=== PATIENT | female | born 1930 | race Caucasian/White ===

== ENCOUNTER 2018-03-13 14:13 | Inpatient (IN) | payer MEDICARE, OTHER ==
[~2018-03-13 14:13] MED LIST: Magnesium Hydroxide 400 MG/5 ML Susp 30 ML Cup PO PRN; Sodium Chloride 0.9% 10 ML Syringe FLUSH PRN
--- NOTE | 2018-03-13 15:01 | CR ---
[id number] RAD/RAD Abd Flat and Upright 2V; [id number] RAD/RAD Lumbar Spine 2-3V Exam: RAD Lumbar Spine 2-3V, RAD Abd Flat and Upright 2V Indication:BACK PAIN. Comparison: No prior imaging for comparison. Discussion: Abdomen/pelvis: Moderate colonic stool burden, correlate for constipation. No no bowel obstruction or pneumoperitoneum. Lumbar spine: Thoracolumbar dextro scoliosis with multilevel spondylosis, including advanced L5-S1 degenerative disc disease. Bones are diffusely demineralized. Negative for acute fracture. Impression: Moderate colonic stool burden, correlate for constipation. Thoracolumbar dextro scoliosis with multilevel spondylosis, including advanced L5-S1 degenerative disc disease. Trevor Combs MD 03/13/18 [id number] Thank you for allowing us to participate in the care of your patient.
[2018-03-13] MEDS: Acetaminophen 325 MG Tab PO PRN (15:32)
[2018-03-13] MEDS: Nicotine 7 MG/24 Hr Patch TRDERM SCH (15:48)
[2018-03-13] MEDS ORDERED: KETOTIFEN 0.035% EYEBOTH PRN (15:51)
[2018-03-13] MEDS ORDERED: Non-Formulary Medication 1 Each (Moxifloxacin [Vigamox 0.5% Ophth Soln] 1 DROP) EYELF SCH (16:00)
[2018-03-13 16:06] LABS: ANION GAP 14.4 mmol/L (10-20)
[2018-03-13] MEDS ORDERED: NS + KCl 20mEq/L 1,000 ML IV SCH (16:30)
[2018-03-13] MEDS: diazePAM 5 MG/ML MDV IVPUSH PRN (17:29)
[2018-03-13] MEDS ORDERED: Enoxaparin 40 MG/0.4 ML Syringe SUBCUT SCH (17:30)
[2018-03-13] MEDS: Citalopram 10 MG Tab PO SCH (17:44)
[2018-03-13] MEDS ORDERED: Erythromycin Base 0.5% Ophth Oint 3.5 GM Tube EYEBOTH SCH (20:00)
--- NOTE | 2018-03-13 20:12 | HP ---
CHIEF COMPLAINT: Back pain and constipation. HISTORY OF PRESENT ILLNESS: This is an 88-year-old female who has really had back pain ever since December when we had snow and she had to try to lift a branch. She has been to PT for about 5 sessions. She was taking some Flexeril. She was actually just in last week and had the dose doubled. She was also constipated. She rates her pain level at very high. Has not had a bowel movement for 10 days. The pain goes into the right leg and hip. She has been weak, having a hard time walking, walking makes the pain worse. She had similar problems about a year ago, but they were not this bad. She is not having any cough. No trouble breathing. No abdominal pain. She has been taking Advil and Tylenol without much relief. ALLERGIES: Include tetanus, Lipitor, bee venom, paroxetine, diarrhea; Paxil, nausea, vomiting, diarrhea; simvastatin; sulfa; Zocor. MEDICATIONS: Her medication list; she used to take Lexapro, but stopped it about 6 or more months ago. Otherwise, she is on Flexeril as needed for muscle spasm, levothyroxine 100 mcg daily, skip Tuesday, doxepin 25 mg daily, Lopid 600 mg daily, Ativan 0.5 b.i.d. as needed, multiple eye drops all prescribed by her eye doctor, calcium, vitamin D, EpiPen if needed, multivitamin, and eye vitamins. PAST MEDICAL HISTORY: Does include adjustment disorder, Mina's esophagus, branch retinal vein occlusion, chronic angle closure glaucoma, corneal edema, previous corneal transplant, generalized anxiety disorder, hyperlipidemia, hypothyroidism, moderate COPD, smoking, osteoporosis, corneal transplant, previous colon polyps. FAMILY HISTORY: She did have a sister with colon cancer. Both parents are . Daughter has fibromyalgia. SOCIAL HISTORY: Socially, she is . She has 4 children. 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 PAST SURGICAL HISTORY: She has had multiple eye surgeries for glaucoma and corneal transplants, like probably about 10 eye surgeries. No other surgeries other than the eye surgeries. REVIEW OF SYSTEMS: General: She has not had any fever or chills, but has been losing weight. She has lost about 7 pounds over the last couple of months. HEENT: No sore throat. Cardiac: No chest pain. No palpitations. Respiratory: No cough. No shortness of breath. Abdomen: As stated in HPI. Musculoskeletal: She has had the back pain. Neurologic: Otherwise, she has had no numbness or tingling in her legs. No new weakness. Otherwise, all systems reviewed and found to be negative unless otherwise stated. PHYSICAL EXAMINATION: VITAL SIGNS: When seen at [facility] include weight 43.09 kg, temp 97.3, pulse 71, blood pressure 134/81, respiratory rate 16, O2 of 91% on room air. It should be noted her clinic blood pressure was 142/100. General: She is in no acute distress. Heart: Regular rate and rhythm. S1, S2 without murmur. Lungs: Sounds are clear to auscultation bilaterally without crackles or wheezes. Abdomen: Soft, but mildly distended. It has some hypoactive bowel sounds, but there is no significant tenderness. No rebound. No guarding. Back: She does have pain to palpation, especially over the right SI joint. There was no pain over the spine. No significant spasm noted. Extremities: Her legs had no swelling. Mental Status: She is mildly anxious, but otherwise she is alert and orientated x3. LABORATORY WORK: Done through the hospital and reviewed. Her white count 6.6, hemoglobin 14.5, platelets 341. Sodium 139, ESR 19, potassium 3.4, chloride 99, bicarb 29, BUN 19, creatinine 1.2, calcium 9.3. ALT, AST, bilirubin, albumin 3.5, but other liver enzymes normal. ASSESSMENT: 1. Acute back pain. We did x-rays to rule out compression fracture. At this point, those were negative. We will do pain control. We will try some IV Valium. We will try to hold off on any narcotics and NSAIDs given her renal insufficiency and constipation. 2. Constipation, presumably due to pain. We will increase her senna to 3 tablets b.i.d. We will have milk of magnesia available and we will try an enema. Her x-rays just show stool, nothing else too concerning. 3. Mild renal insufficiency. We will start her on some IV fluids. Repeat in the morning. 4. Hypothyroidism. We will continue levothyroxine. 5. Hypokalemia. We will add potassium to the fluids. Repeat tomorrow. Check a magnesium level as well. 6. Adjustment disorder with depression and anxiety. I have added back some Celexa. She took Lexapro in the past. This actually used to cause some diarrhea for her, so we will get that started in addition to her doxepin and p.r.n. Ativan. 7. Severe osteoporosis. We will need to rule out compression fracture and we did with x-rays. 8. Smoking. Nicotine patch ordered. 9. Glaucoma. She will be on her home eye drops. PLAN: At this point, the patient will be admitted for acute cares. We will start her on Lovenox for DVT prophylaxis. We will give her fluids. We will repeat lab in the morning. We will have her on IV Valium for pain control. We will get her an enema. Anticipate that she will be here 2 nights, so she is admitted under acute cares due to all the treatments that have been ordered. We will also get Physical Therapy to assess and treat her to ensure that she is safe to return home. She elects to be a code level 3. MKA: 03/13/2018 17:26:40 MODL: 03/13/2018 20:03:56 /[id number]
[2018-03-13] MEDS: LOTEMAX EYE EYELF SCH (21:24)
[2018-03-13] MEDS: ERYTHROMYCIN BASE 0.5% EYELF SCH (21:25)
[2018-03-13] MEDS: DUREZOL 0.05% EYERT SCH (21:26)
[2018-03-13] MEDS: COMBIGAN EYERT SCH (21:26)
[2018-03-13] MEDS: Enoxaparin 30 MG/0.3 ML Syringe SUBCUT SCH (21:29)
[2018-03-14] MEDS: LORazepam 0.5 MG Tab PO PRN ×2 (03:02→20:57)
[2018-03-14 07:21] LABS: ANION GAP 14.1 mmol/L (10-20)
[2018-03-14] MEDS: Levothyroxine 100 MCG Tab PO SCH (08:45)
[2018-03-14] MEDS: Doxepin 25 MG Cap PO SCH (08:46)
[2018-03-14] MEDS: valACYclovir 1,000 MG Tab PO SCH (08:46)
[2018-03-14] MEDS: Citalopram 10 MG Tab PO SCH (08:46)
[2018-03-14] MEDS: Beta-Carotene (Vitamin A) w/Vitamin C & E plus Minerals Tab PO SCH (08:47)
[2018-03-14] MEDS: COMBIGAN EYERT SCH ×2 (08:48→21:13)
[2018-03-14] MEDS: DUREZOL 0.05% EYERT SCH ×2 (08:48→21:13)
[2018-03-14] MEDS: LOTEMAX EYE EYELF SCH ×2 (08:49→21:12)
[2018-03-14] MEDS: diazePAM 5 MG/ML MDV IVPUSH PRN (09:05)
[2018-03-14] MEDS: Acetaminophen 325 MG Tab PO PRN (09:08)
[2018-03-14] MEDS: Gabapentin 100 MG Cap PO SCH ×2 (11:30→20:55)
[2018-03-14] MEDS: Nicotine 7 MG/24 Hr Patch TRDERM SCH (11:31)
--- NOTE | 2018-03-14 12:46 | PN ---
Progress Note for SHITAL WATERMAN Date: 03/14/2018 Room #: VM.219 SUBJECTIVE: This is hospital day #2 on an 88-year-old admitted yesterday with severe back pain, spasms and constipation. She did have some laxatives and an enema yesterday. She had 6 bowel movements during the night. Her abdomen is better, but still feeling a little bit full. Her back pain has been just as severe. She has had at least 2 doses of IV Valium. She has used some Tylenol when needed. She otherwise did feel like she might have a bladder infection coming on. She has not had her UA. She was incontinent of urine. She is not having any cough or shortness of breath. She did get some Celexa. She had been on Lexapro before. She had actually thought of taking that at home. She has not received any NSAIDs. She had some mild renal insufficiency on admission that improved with fluids. She has not been on narcotics. OBJECTIVE: Vital Signs: Temperature is low grade at 100.2 this a.m., pulse 67, blood pressure 143/72, respiratory rate 20, and O2 90 on room air. General: She is in no acute distress. Heart: Regular rate and rhythm. S1, S2 without murmur. Respirations: Lungs sounds are clear to auscultation bilaterally without crackles or wheezes. Abdomen: Has positive bowel sounds. It is soft. It is nondistended, just mildly tender. Extremities: Warm and dry. No edema. Mental Status: Alert and orientated x3. Musculoskeletal: Her back is palpated. There is no bony tenderness appreciated. LABORATORY DATA: Her lab work did improve. Sodium is normal at 142, potassium improved up to 4.1, chloride 104, bicarb 28, BUN 17, creatinine 0.9, glucose 80, calcium 8.8, and magnesium 2. ASSESSMENT: 1. Acute back pain with spasms. Need to rule out infections. We will be getting a UA. I am also going to start her on some Neurontin 100 b.i.d., side effects discussed. We will continue the IV Valium. I am going to restart her oral Flexeril. 2. Constipation, improving. She will continue with the senna. 3. Mild renal insufficiency, resolved. 4. Hypothyroidism, treated. 5. Hypokalemia, replaced. 6. Adjustment disorder, on Celexa. She has taken Lexapro before. 7. Severe osteoporosis. No compression fracture on x-rays. 8. Smoking. Nicotine patch is ordered. 9. Glaucoma. PLAN: At this point, the patient will continue with acute cares due to her low- grade fevers. We will check her urine. If she develops any cough, we will certainly get a chest x-ray. Otherwise, she will be using incentive spirometry. We will get her up and moving with therapies. Hopefully, if things continue to improve, she will be discharged home tomorrow. We will use ice and heat for pain control as well as the Flexeril and IV Valium. No lab work needs to be repeated unless further fevers. For DVT prophylaxis, she is on Lovenox. MKA: 03/14/2018 12:16:27 MODL: 03/14/2018 12:37:30 /[id number]
[2018-03-14] MEDS: Cyclobenzaprine 10 MG Tab PO PRN (17:27)
[2018-03-14] MEDS: Menthol/Methyl Salicylate 85 GM Tube TOP PRN (21:10)
[2018-03-14] MEDS: ERYTHROMYCIN BASE 0.5% EYELF SCH (21:12)
[2018-03-14] MEDS: Enoxaparin 30 MG/0.3 ML Syringe SUBCUT SCH (21:12)
[2018-03-15] MEDS: Levothyroxine 100 MCG Tab PO SCH (06:41)
[2018-03-15] MEDS: Gabapentin 100 MG Cap PO SCH ×2 (08:11→19:56)
[2018-03-15] MEDS: Doxepin 25 MG Cap PO SCH (08:11)
[2018-03-15] MEDS: valACYclovir 1,000 MG Tab PO SCH (08:11)
[2018-03-15] MEDS: Beta-Carotene (Vitamin A) w/Vitamin C & E plus Minerals Tab PO SCH ×2 (08:11→08:42)
[2018-03-15] MEDS: Citalopram 10 MG Tab PO SCH (08:11)
[2018-03-15] MEDS: Cyclobenzaprine 10 MG Tab PO PRN (08:12)
[2018-03-15] MEDS: DUREZOL 0.05% EYERT SCH ×2 (08:12→23:18)
[2018-03-15] MEDS: COMBIGAN EYERT SCH ×2 (08:13→19:54)
[2018-03-15] MEDS: LOTEMAX EYE EYELF SCH ×2 (08:13→19:55)
[2018-03-15] MEDS: diazePAM 5 MG/ML MDV IVPUSH PRN (08:16)
[2018-03-15] MEDS: Nicotine 7 MG/24 Hr Patch TRDERM SCH (11:43)
[2018-03-15] MEDS: predniSONE 20 MG Tab PO SCH (11:43)
--- NOTE | 2018-03-15 11:49 | CR ---
[id number] RAD/RAD Chest PA or AP 1V EXAM: RAD Chest PA or AP 1V INDICATION: HYPOXIA. COMPARISON: January 08, 2011. DISCUSSION: Cardiomediastinal silhouette is normal in size and contour. No infiltrate, effusion, pneumothorax, or edema. Pulmonary hyperinflation. Masslike perihilar fullness on the right appears more prominent when compared to the prior study from 2010. IMPRESSION: 1. Masslike perihilar fullness on the right. A CT of the chest without contrast could be considered for further evaluation. Milton Grant DO 03/15/18 1146 Thank you for allowing us to participate in the care of your patient.
[2018-03-15] MEDS: ERYTHROMYCIN BASE 0.5% EYELF SCH (19:55)
[2018-03-15] MEDS: Enoxaparin 30 MG/0.3 ML Syringe SUBCUT SCH (19:55)
--- NOTE | 2018-03-15 21:43 | PN ---
Progress Note for SHITAL WATERMAN Date: 03/15/2018 Room #: VM.219 SUBJECTIVE: Day #3 on an 88-year-old admitted with severe back pain and spasm going into the right leg and constipation. Constipation has resolved. She has had multiple bowel movements, some of them incontinent. She is not having any abdominal pain, but her back pain has been intermittent, but when it comes, it is quite sharp. We did start her on some Neurontin. She is taking some IV Valium and Flexeril. She had been taking some Motrin at home, but had some mild renal insufficiency on admission, so we have withheld that. She otherwise does have a mild cough, nonproductive. She is a smoker. She is not short of breath. She has had some incontinence of urine, but denies any burning. OBJECTIVE: Vital Signs: Her temperature this morning was 98.2, pulse 69, blood pressure 135/63, respiratory rate 18, O2 of 90% on room air. General: She is in no acute distress. Heart: Regular rate and rhythm. S1, S2 without murmur. Lungs: Sounds are decreased to air entry throughout, but without crackles or wheezes. Abdomen: Has positive bowel sounds. Soft, nontender. Extremities: Warm and dry. No edema. Left leg is examined. There is no redness, no warmth. She has normal sensation to light touch. Back: Palpated. There is no spasm noted. She had no bony tenderness, but does have some pain over the right low back lumbar musculature. Mental Status: She is alert and orientated x3. LABORATORY WORK: That was repeated today did show her potassium to have improved up to 4.1. Creatinine improved down to 0.9. ASSESSMENT: 1. Acute back pain with spasms, rule out compression fracture with some x- rays. Her UA was done and showed just mild 5-10 wbc's. We will go ahead and culture that, but I do not think that is what is causing her spasms. I think she probably had some disk pathology. Discussed starting her on prednisone 40 mg daily over the next 5 days and see how she does. We will also schedule an MRI for Tuesday. I will increase that Neurontin up to 200 twice daily. We will continue the IV Valium, but probably discontinue that soon and switch it to oral. We will continue the Flexeril. Now that her kidney function has improved, I would probably try a few more doses of IV Toradol and try to avoid narcotics due to her constipation. 2. Constipation resolved. She has senna available p.r.n. 3. Mild renal insufficiency, resolved. 4. Hypothyroidism, treated. 5. Mild hypoxia. Chest x-ray was done today. There was some question of a mass-like fullness in the right side of the chest. I was going to review this with the patient, however, she was sleeping. This can certainly be followed up outpatient. 6. Smoking. She is doing okay with avoiding that. 7. Adjustment disorder. She is currently on some Celexa. This was restarted on this admission. She has taken Lexapro before. 8. Severe osteoporosis. 9. Glaucoma. She is on her eye drops. PLAN: At this point, the patient will continue acute cares. We will start some prednisone for her back pathology. We will work on getting an MRI. She may need some epidural steroid injections. We will continue acute treatments and especially continue with therapy. Anticipate she may need to be discharged over to swing bed for further cares. For DVT prophylaxis, she is on Lovenox. I will repeat lab work tomorrow. MKA: 03/15/2018 20:31:49 MODL: 03/15/2018 21:38:05 /[id number]
[2018-03-16] MEDS: Gabapentin 100 MG Cap PO SCH ×2 (03:12→07:54)
[2018-03-16] MEDS: Menthol/Methyl Salicylate 85 GM Tube TOP PRN (04:56)
[2018-03-16] MEDS: Doxepin 25 MG Cap PO SCH (07:53)
[2018-03-16] MEDS: predniSONE 20 MG Tab PO SCH (07:53)
[2018-03-16] MEDS: Citalopram 10 MG Tab PO SCH (07:53)
[2018-03-16] MEDS: Beta-Carotene (Vitamin A) w/Vitamin C & E plus Minerals Tab PO SCH (07:54)
[2018-03-16] MEDS: DUREZOL 0.05% EYERT SCH (07:55)
[2018-03-16] MEDS: COMBIGAN EYERT SCH (07:55)
[2018-03-16] MEDS: LOTEMAX EYE EYELF SCH (07:55)
[2018-03-16] MEDS: valACYclovir 1,000 MG Tab PO SCH (07:55)
[2018-03-16] MEDS: Levothyroxine 100 MCG Tab PO SCH (07:57)
--- NOTE | 2018-03-16 09:44 | PCM.DCSUM1 ---
Discharge Summary - Hospital Course Brief History: Ms. Orellana is an 88 yo female admitted with presumed lumbar radiculopathy and constipation after presenting to the clinic with severe back pain. - Discharge Data Discharge Date: 03/16/18 Discharge Disposition: DC/Tfer W/I Hosp To Swing 61 Condition: Good - Discharge Diagnosis/Problem(s) (1) Back pain SNOMED Code(s): 651857899 ICD Code: M54.9 - DORSALGIA, UNSPECIFIED Status: Acute Current Visit: Yes Qualifiers: Back pain location: low back pain Chronicity: acute Back pain laterality : right Sciatica presence: with sciatica Sciatica laterality: sciatica of right side Qualified Code(s): M54.41 - Lumbago with sciatica, right side (2) Constipation SNOMED Code(s): 97096111 ICD Code: K59.00 - CONSTIPATION, UNSPECIFIED Status: Acute Current Visit : Yes Qualifiers: Constipation type: unspecified constipation type Qualified Code(s): K59.00 - Constipation, unspecified (3) Renal insufficiency, mild SNOMED Code(s): 419444659 ICD Code: N28.9 - DISORDER OF KIDNEY AND URETER, UNSPECIFIED Status: Chronic Current Visit: Yes (4) Adjustment disorder SNOMED Code(s): 57098573 ICD Code: F43.20 - ADJUSTMENT DISORDER, UNSPECIFIED Status: Chronic Current Visit: Yes Qualifiers: Adjustment disorder type: unspecified type Qualified Code(s): F43.20 - Adjustment disorder, unspecified (5) RAMON (generalized anxiety disorder) SNOMED Code(s): 76707788 ICD Code: F41.1 - GENERALIZED ANXIETY DISORDER Status: Chronic Current Visit: Yes (6) COPD (chronic obstructive pulmonary disease) SNOMED Code(s): 47872115 ICD Code: J44.9 - CHRONIC OBSTRUCTIVE PULMONARY DISEASE, UNSPECIFIED Status : Chronic Current Visit: Yes Qualifiers: COPD type: unspecified COPD Qualified Code(s): J44.9 - Chronic obstructive pulmonary disease, unspecified (7) Smoking SNOMED Code(s): 45621824 ICD Code: F17.200 - NICOTINE DEPENDENCE, UNSPECIFIED, UNCOMPLICATED Status : Chronic Current Visit: Yes (8) Chronic angle-closure glaucoma SNOMED Code(s): 626718784 ICD Code: H40.2290 - CHRONIC ANGLE-CLOSURE GLAUCOMA, UNSP EYE, STAGE UNSPECIFIED Status: Chronic Current Visit: Yes Qualifiers: Laterality: unspecified laterality Glaucoma stage: stage unspecified Qualified Code(s): H40.2290 - Chronic angle-closure glaucoma, unspecified eye, stage unspecified (9) Hypothyroid SNOMED Code(s): 54378549 ICD Code: E03.9 - HYPOTHYROIDISM, UNSPECIFIED Status: Chronic Current Visit: Yes Qualifiers: Hypothyroidism type: acquired Qualified Code(s): E03.9 - Hypothyroidism, unspecified (10) Osteoporosis SNOMED Code(s): 54947989 ICD Code: M81.0 - AGE-RELATED OSTEOPOROSIS W/O CURRENT PATHOLOGICAL FRACTURE Status: Chronic Current Visit: Yes Qualifiers: Osteoporosis type: age-related Presence of current pathological fracture: without current pathological fracture Qualified Code(s): M81.0 - Age-related osteoporosis without current pathological fracture - Patient Summary/Data Operative Procedure(s) Performed: none Complications: none Consults: Consultations 03/13/18 14:08 OT Evaluation and Treatment [CONS] Routine PT Evaluation and Treatment [CONS] Routine 03/13/18 17:17 Consult to Case Management/Slot Editor [CONS] Routine Labs Pending at D/C: none Recommended Follow-up Testing/Procedures: MRI on Tuesday Planned Operative Procedure(s) after DC: none Hospital Course: Patient was admitted to acute and treated with IV valium, flexeril, and tylenol. NSAID's were held due to slight increase in creatinine. She has not required any valium since yesterday morning. She has had improvement in her pain to the point that she is able to move about her room more easily with nursing. Still having spasms at times but these are controlled with PO medications. Her constipation had resolved with initial interventions but she has now gone 24 hours without a BM again. Her hospital stay was also complicated by a cough for which a chest x-ray was unremarkable for acute findings. There was a question of a mass, which her PCP will address as an outpatient. Hospitalization was otherwise uncomplicated. She had a cognitive evaluation, which she passed. PT has been working with her. As she has improved to the point of only needing oral medications, there is no indication to keep her on acute status. However, she is not prepared for dismissal home and will be transitioned instead to swing bed today. - Patient Instructions Diet: Usual Diet as Tolerated - Discharge Plan Home Medications: Home Meds Brimonidine/Timolol [Combigan 0.2%/0.5% Ophth Soln] 1 drop EYERT BID 01/19/17 [ History] Cyclobenzaprine [Flexeril] 5 mg PO BID PRN 01/19/17 [History] Doxepin [SINEquan] 25 mg PO DAILY 01/19/17 [History] Durezol 0.05% 1 drop EYERT BID 01/19/17 [History] EPINEPHrine [Epipen] 0.3 mg IM ASDIRECTED PRN 01/19/17 [History] Erythromycin Base [Erythromycin] 1 applic EYELF BEDTIME 01/19/17 [History] Gemfibrozil 600 mg PO DAILY 01/19/17 [History] Ketotifen Fumarate [Alaway] 1 drop OP Q2D PRN 01/19/17 [History] LORazepam 0.5 mg PO BID PRN 01/19/17 [History] Levothyroxine [Synthroid] 100 mcg PO ACBREAKFAST 01/19/17 [History] Loteprednol Etabonate [Lotemax] 1 drop EYELF BID 01/19/17 [History] Multivitamin Plus 1 tab PO DAILY 01/19/17 [History] Vit C/Vit E Ac/Lut/Mineral 1 [Prosight with Lutein] 1 tab PO DAILY 01/19/17 [ History] valACYclovir [Valtrex] 500 mg PO DAILY 01/19/17 [History] Moxifloxacin [Vigamox 0.5% Ophth Soln] 1 drop EYELF QID 03/13/18 [History] - Discharge Summary/Plan Comment DC Time >30 min.: No - General Info Date of Service: 03/16/18 Subjective Update: Patient feels she is doing slightly better. Still having episodes of pain but these are less often and shorter in duration than previously. Nursing staff notes she is moving much better today than she has in previous days. Chronic cough persists but is unchanged. No fever or chills. She is eating well. She does note that she now has not had a BM since yesterday morning. No abdominal pain. Voiding without issues. - Review of Systems General: Reports: No Symptoms HEENT: Reports: No Symptoms Pulmonary: Reports: No Symptoms Cardiovascular: Reports: No Symptoms Gastrointestinal: Reports: No Symptoms Genitourinary: Reports: No Symptoms Musculoskeletal: Reports: No Symptoms Skin: Reports: No Symptoms Neurological: Reports: No Symptoms - Patient Data Vitals - Most Recent: Last Vital Signs Temp 36.7 C 03/16/18 05:28 Pulse 61 03/16/18 05:28 Resp 18 03/16/18 05:28 BP 148/70 H 03/16/18 05:28 Pulse Ox 91 L 03/16/18 05:28 Weight - Most Recent: 43.091 kg I&O - Last 24 hours: Intake & Output 03/15/18 03/16/18 03/16/18 22:59 06:59 14:59 Intake Total 400 240 Output Total 375 600 Balance 25 -600 240 Lab Results - Last 24 hrs: Laboratory Results - last 24 hr 03/15/18 03/16/18 03/16/18 Range/Units 16:10 06:46 06:46 WBC 5.8 (4.0-10.0) x10^3/uL RBC 4.54 (4.00-5.50) x10^6/uL Hgb 14.1 (12.0-16.0) g/dL Hct 42.6 (33.0-47.0) % MCV 93.8 H (78.0-93.0) fL MCH 31.1 (26.0-32.0) pg MCHC 33.1 (32.0-36.0) g/dL RDW Coeff of Chris 14.4 (10.0-15.0) % Plt Count 354 (130-400) x10^3/uL Neut % (Auto) 54.7 (50.0-80.0) % Lymph % (Auto) 28.0 (25.0-50.0) % [place] % (Auto) 16.3 H (2.0-11.0) % Eos % (Auto) 0.7 (0.0-4.0) % Baso % (Auto) 0.3 (0.2-1.2) % Sodium 142 (136-145) mmol/L Potassium 4.0 (3.5-5.1) mmol/L Chloride 104 (98-107) mmol/L Carbon Dioxide 33 H (21-32) mmol/L Anion Gap 9.0 L (10-20) mmol/L BUN 15 (7-18) mg/dL Creatinine 0.9 (0.55-1.02) mg/dL Est Cr Clr Drug Dosing 30.52 mL/min Estimated GFR (MDRD) 59 Glucose 83 (74-106) mg/dL Calcium 9.1 (8.5-10.1) mg/dL Urine Color Yellow (YELLOW) Urine Appearance Clear (CLEAR) Urine pH 7.0 (5.0-8.0) Ur Specific [place] 1.015 Urine Protein Negative (NEGATIVE) mg/dL Urine Glucose (UA) Negative (NEGATIVE) mg/dL Urine Ketones Negative (NEGATIVE) mg/dL Urine Occult Blood Trace-intact H (NEGATIVE) Urine Nitrite Negative (NEGATIVE) Urine Bilirubin Negative (NEGATIVE) Urine Urobilinogen 1.0 (0.2) EU/dL Ur Leukocyte Esterase Small H (NEGATIVE) Urine RBC 0-5 (NOT SEEN) /HPF Urine WBC 5-10 H (NOT SEEN) /HPF Ur Squamous Epith Cells Rare (NEGATIVE) /HPF Urine Bacteria Few H (NEGATIVE) /HPF Urine Mucus Rare H (NEGATIVE) /LPF Med Orders - Current: Current Medications Acetaminophen (Tylenol) 650 mg PO Q4H PRN PRN Reason: Pain (Mild 1-3)/fever Last Admin: 03/14/18 09:08 Dose: 650 mg Citalopram Hydrobromide (Celexa) 5 mg PO DAILY [facility] Last Admin: 03/16/18 07:53 Dose: 5 mg Cyclobenzaprine HCl (Flexeril) 5 mg PO TID PRN PRN Reason: Spasms Last Admin: 03/15/18 08:12 Dose: 5 mg Doxepin HCl (Sinequan) 25 mg PO DAILY [facility] Last Admin: 03/16/18 07:53 Dose: 25 mg Enoxaparin Sodium (Lovenox) 30 mg SUBCUT Q24H [facility] Last Admin: 03/15/18 19:55 Dose: 30 mg Erythromycin (Erythromycin 0.5% Ophth Oint) 0 gm EYELF BEDTIME [facility] Last Admin: 03/15/18 19:55 Dose: 1 drop Gabapentin (Neurontin) 200 mg PO BID [facility] Last Admin: 03/16/18 07:54 Dose: 200 mg Levothyroxine Sodium (Synthroid) 100 mcg PO ACBREAKFAST [facility] Last Admin: 03/16/18 07:57 Dose: Not Given Lorazepam (Ativan) 0.5 mg PO BID PRN PRN Reason: Anxiety Last Admin: 03/14/18 20:57 Dose: 0.5 mg Magnesium Hydroxide (Milk Of Magnesia) 30 ml PO Q12H PRN PRN Reason: Constipation Methyl Salicylate (Icy Hot Cream) 1 gm TOP BID PRN PRN Reason: Pain (mild 1-3) Last Admin: 03/16/18 04:56 Dose: 1 gram Multivitamins/Minerals (Prosight) 1 tab PO DAILY [facility] Last Admin: 03/16/18 07:54 Dose: 1 tab Nicotine (Habitrol) 7 mg TRDERM Q24H [facility] Last Admin: 03/15/18 11:43 Dose: 7 mg Combigan 0.2%/0.5% (Ophth Soln) 1 drop EYERT BID [facility] Last Admin: 03/16/18 07:55 Dose: 1 drop Durezol 0.05% * (Patient Own*) 1 drop EYERT BID [facility] Last Admin: 03/16/18 07:55 Dose: 1 drop Ketotifen 0.035 % Eye Drops *Patient Own* 0 each EYEBOTH DAILY PRN PRN Reason: Dry Eyes Lotemax Eye Drops * (Patient Own*) 1 drop EYELF BID [facility] Last Admin: 03/16/18 07:55 Dose: 1 drop Prednisone (Prednisone) 40 mg PO WITHBREAKFAST [facility] Last Admin: 03/16/18 07:53 Dose: 40 mg Sodium Chloride (Saline Flush) 10 ml FLUSH ASDIRECTED PRN PRN Reason: Keep Vein Open Valacyclovir HCl (Valtrex) 500 mg PO DAILY [facility] Last Admin: 03/16/18 07:55 Dose: 500 mg Discontinued Medications Diazepam (Valium) 2.5 mg IVPUSH Q4H PRN PRN Reason: Pain Last Admin: 03/15/18 08:16 Dose: 2.5 mg Enoxaparin Sodium (Lovenox) 40 mg SUBCUT Q24H [facility] Last Admin: 03/13/18 18:21 Dose: Not Given Erythromycin (Erythromycin 0.5% Ophth Oint) gm EYEBOTH BEDTIME [facility] Gabapentin (Neurontin) 100 mg PO BID [facility] Last Admin: 03/15/18 19:56 Dose: 100 mg Potassium Chloride/Sodium Chloride (Normal Saline With 20 Meq Kcl) 1,000 mls @ 75 mls/hr IV ASDIRECTED [facility] Last Admin: 03/13/18 17:30 Dose: 75 mls/hr Non-Formulary Medication (Moxifloxacin [Vigamox 0.5% Ophth Soln]) 1 drop EYELF QID [facility] Last Admin: 03/13/18 17:28 Dose: Not Given Senna/Docusate Sodium (Senna Plus) 3 tab PO BID [facility] Last Admin: 03/14/18 08:46 Dose: 3 tab Senna/Docusate Sodium (Senna Plus) 1 tab PO BID [facility] - Exam General: Reports: Alert, Cooperative, No Acute Distress HEENT: Reports: Mucous Membr. Moist/[place] Neck: Reports: Supple, Trachea Midline, No Thyromegaly. Denies: Lymphadenopathy Lungs: Reports: Clear to Auscultation, Normal Respiratory Effort Cardiovascular: Reports: Regular Rate, Regular Rhythm, No Murmurs GI/Abdominal Exam: Normal Bowel Sounds, Soft, Non-Tender, No Organomegaly, No Distention, No Mass Extremities: Non-Tender, No Pedal Edema, Normal Capillary Refill Skin: Reports: Warm, Dry, Intact Neurological: Reports: No New Focal Deficit
== END 2018-03-16 10:56 | disposition swing bed (61) | DRG 552 ==
LOC: VM.DI 14:13 → VM.MS 14:22
PROVIDERS: ADMIT Internal Medicine; ATTEND Internal Medicine
DX: M54.16 Radiculopathy, lumbar region (principal); K59.00 Constipation, unspecified; E78.5 Hyperlipidemia, unspecified; E03.9 Hypothyroidism, unspecified; J44.9 Chronic obstructive pulmonary disease, unspecified; F17.210 Nicotine dependence, cigarettes, uncomplicated; R09.02 Hypoxemia; R05 Cough; K22.70 Barrett's esophagus without dysplasia; M54.41 Lumbago with sciatica, right side; H40.2290 Chronic angle-closure glaucoma, unspecified eye, stage unspecified; M81.0 Age-related osteoporosis without current pathological fracture; N28.9 Disorder of kidney and ureter, unspecified; F43.20 Adjustment disorder, unspecified; F41.1 Generalized anxiety disorder; E87.6 Hypokalemia; R22.2 Localized swelling, mass and lump, trunk; Z94.7 Corneal transplant status; Z79.899 Other long term (current) drug therapy; Z88.2 Allergy status to sulfonamides; Z88.8 Allergy status to other drugs, medicaments and biological substances
CPT/HCPCS: 36415; 71045; 72100; 74019; 80048; 80053; 81001; 83735; 85025; 85652; 87086; 97110-GO; 97110-GP; 97161-GP; 97165-GO; 97530-GP; A9270-GY; J1650; J3360; J3480

== ENCOUNTER 2018-03-16 09:52 | Inpatient (IN) | payer MEDICARE, OTHER ==
--- NOTE | 2018-03-16 11:04 | PCM.HP ---
H&P History of Present Illness - General Date of Service: 03/16/18 Admit Problem/Dx: Admission Diagnosis/Problem Admission Diagnosis/Problem Lumbar radiculopathy Source of Information: Patient History Limitations: Reports: No Limitations - History of Present Illness Initial Comments - Free Text/Narative: Ms. Orellana is an 88 yo female who is admitted to swing bed for further management of acute lumbar radiculopathy. She was initially admitted to acute as she was requiring IV medications for pain control. Her last dose of any IV medication was yesterday morning so she was no longer meeting acute criteria. Neither the patient nor staff feel she is prepared to return home; therefore, she is transitioned to swing bed for ongoing cares. She states she is still having episodes of spasms but these are less often, shorter in duration, and less severe than they were on admission. She also had constipation on admission and this did improve; she now states, however, that she has again not had a bowel movement for 24 hours. No abdominal pain. She is voiding without any issues. She has had a cough but this is chronic for her and without changes. No fever or shortness of breath. Acute hospitalization was otherwise uncomplicated and she denies any other concerns today. - Related Data Allergies/Adverse Reactions: Allergies Allergy/AdvReac Type Severity Reaction Status Date / Time Sulfa (Sulfonamide Allergy Rash Verified 01/19/17 12:58 Antibiotics) tetanus and diphtheria Allergy Rash Verified 01/19/17 12:58 toxoids atorvastatin [From Lipitor] AdvReac Muscle Verified 03/13/18 14:12 Weakness paroxetine [From Paxil] AdvReac Diarrhea Verified 03/13/18 14:12 simvastatin [From Zocor] AdvReac Muscle Verified 03/13/18 14:12 Weakness wasp Allergy Difficulty Uncoded 01/19/17 12:58 Swallowing Home Medications: Home Meds Brimonidine/Timolol [Combigan 0.2%/0.5% Ophth Soln] 1 drop EYERT BID 01/19/17 [ History] Cyclobenzaprine [Flexeril] 5 mg PO BID PRN 01/19/17 [History] Doxepin [SINEquan] 25 mg PO DAILY 01/19/17 [History] Durezol 0.05% 1 drop EYERT BID 01/19/17 [History] EPINEPHrine [Epipen] 0.3 mg IM ASDIRECTED PRN 01/19/17 [History] Erythromycin Base [Erythromycin] 1 applic EYELF BEDTIME 01/19/17 [History] Gemfibrozil 600 mg PO DAILY 01/19/17 [History] Ketotifen Fumarate [Alaway] 1 drop OP Q2D PRN 01/19/17 [History] LORazepam 0.5 mg PO BID PRN 01/19/17 [History] Levothyroxine [Synthroid] 100 mcg PO ACBREAKFAST 01/19/17 [History] Loteprednol Etabonate [Lotemax] 1 drop EYELF BID 01/19/17 [History] Multivitamin Plus 1 tab PO DAILY 01/19/17 [History] Vit C/Vit E Ac/Lut/Mineral 1 [Prosight with Lutein] 1 tab PO DAILY 01/19/17 [ History] valACYclovir [Valtrex] 500 mg PO DAILY 01/19/17 [History] Moxifloxacin [Vigamox 0.5% Ophth Soln] 1 drop EYELF QID 03/13/18 [History] Acetaminophen [Tylenol] 650 mg PO Q4H PRN 03/16/18 [History] Citalopram Hydrobromide [Celexa] 5 mg PO DAILY 03/16/18 [History] Gabapentin [Neurontin] 200 mg PO BID 03/16/18 [History] Menthol/Methyl Salicylate [Icy Hot Cream] 1 applicful TP BID PRN 03/16/18 [ History] Nicotine [Nicotine Patch] 7 mg TD DAILY 03/16/18 [History] predniSONE [Prednisone] 40 mg PO DAILY 03/16/18 [History] Past Medical History HEENT History: Reports: Glaucoma Other HEENT History: bilateral dry eye, interocular lens replacement, 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, left glaucoma shunt device, dermatochalasis, corneal edemaright,branch retinal vein occlusion, pseudophakia Cardiovascular History: Reports: High Cholesterol Other Cardiovascular History: hyperlipidemia, elevated blood pressure Respiratory History: Reports: COPD Gastrointestinal History: Reports: GERD Other Gastrointestinal History: Mina's Genitourinary History: Reports: Chronic Renal Insuffiency Musculoskeletal History: Reports: Osteoporosis Neurological History: Reports: None Psychiatric History: Reports: Anxiety Other Psychiatric History: adjustment disorder Endocrine/Metabolic History: Reports: Hypoparathyroidism Other Endocrine/Metabolic History: impaired fasting glucose, Hematologic History: Reports: None Oncologic (Cancer) History: Reports: Colon, Other (See Below) Other Oncologic History: tubular adenoma Dermatologic History: Reports: Other (See Below) Other Dermatologic History: rash - Past Surgical History HEENT Surgical History: Reports: Other (See Below) Other HEENT Surgeries/Procedures: post corneal transplant Social & Family History - Family History Cardiac: Reports: CAD Neurological: Reports: CVA, Seizure Oncologic: Reports: Breast, Colon - Tobacco Use Smoking Status *Q: Current Every Day Smoker - Caffeine Use Caffeine Use: Reports: Coffee Caffeine Use Comment: 3/day - Alcohol Use Alcohol Use History: No Alcohol Use in Last Twelve Months: No - Recreational Drug Use Recreational Drug Use: No - Living Situation & Occupation Living situation: Reports: , Alone 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 No: Lymphadenopathy, Thyromegaly Lungs: Clear to Auscultation, Normal Respiratory Effort Cardiovascular: Regular Rate, Regular Rhythm, Normal S1, Normal S2 GI/Abdominal Exam: Normal Bowel Sounds, Soft, Non-Tender, No Organomegaly, No Distention, No Mass Extremities: Non-Tender, No Pedal Edema, Normal Capillary Refill Peripheral Pulses: 2+: Radial (L), Radial (R) Skin: Warm, Dry, Intact Neurological: Reflexes Equal Bilateral, Strength Equal Bilateral, Sensation Intact - Problem List (1) Back pain SNOMED Code(s): 038295260 ICD Code: M54.9 - DORSALGIA, UNSPECIFIED Status: Acute Qualifiers: Back pain location: low back pain Chronicity: acute Back pain laterality : right Sciatica presence: with sciatica Sciatica laterality: sciatica of right side Qualified Code(s): M54.41 - Lumbago with sciatica, right side (2) Constipation SNOMED Code(s): 55409634 ICD Code: K59.00 - CONSTIPATION, UNSPECIFIED Status: Acute Qualifiers: Constipation type: unspecified constipation type Qualified Code(s): K59.00 - Constipation, unspecified (3) Adjustment disorder SNOMED Code(s): 07118356 ICD Code: F43.20 - ADJUSTMENT DISORDER, UNSPECIFIED Status: Chronic Qualifiers: Adjustment disorder type: with anxious mood Qualified Code(s): F43.22 - Adjustment disorder with anxiety (4) COPD (chronic obstructive pulmonary disease) SNOMED Code(s): 77351142 ICD Code: J44.9 - CHRONIC OBSTRUCTIVE PULMONARY DISEASE, UNSPECIFIED Status : Chronic Qualifiers: COPD type: unspecified COPD Qualified Code(s): J44.9 - Chronic obstructive pulmonary disease, unspecified (5) Smoking SNOMED Code(s): 20252940 ICD Code: F17.200 - NICOTINE DEPENDENCE, UNSPECIFIED, UNCOMPLICATED Status : Chronic (6) Chronic angle-closure glaucoma SNOMED Code(s): 962258235 ICD Code: H40.2290 - CHRONIC ANGLE-CLOSURE GLAUCOMA, UNSP EYE, STAGE UNSPECIFIED Status: Chronic Qualifiers: Laterality: unspecified laterality Glaucoma stage: stage unspecified Qualified Code(s): H40.2290 - Chronic angle-closure glaucoma, unspecified eye, stage unspecified (7) Hypothyroid SNOMED Code(s): 27609333 ICD Code: E03.9 - HYPOTHYROIDISM, UNSPECIFIED Status: Chronic Qualifiers: Hypothyroidism type: acquired Qualified Code(s): E03.9 - Hypothyroidism, unspecified (8) Osteoporosis SNOMED Code(s): 79648968 ICD Code: M81.0 - AGE-RELATED OSTEOPOROSIS W/O CURRENT PATHOLOGICAL FRACTURE Status: Chronic Qualifiers: Osteoporosis type: age-related Presence of current pathological fracture: without current pathological fracture Qualified Code(s): M81.0 - Age-related osteoporosis without current pathological fracture (9) Renal insufficiency, mild SNOMED Code(s): 326987468 ICD Code: N28.9 - DISORDER OF KIDNEY AND URETER, UNSPECIFIED Status: Chronic Problem List Initiated/Reviewed/Updated: Yes Orders Last 24hrs: Active Orders 24 hr Category Date Time Status Patient Status [ADT] Routine ADT 03/16/18 10:56 Active Notify Provider Vital Signs [RC] ASDIRECTED Care 03/16/18 10:56 Active Oxygen Therapy [RC] PRN Care 03/16/18 10:54 Active Up With Assistance [RC] ASDIRECTED Care 03/16/18 10:54 Active VTE/DVT Education [RC] PER UNIT ROUTINE Care 03/16/18 10:54 Active Vital Signs [RC] PER UNIT ROUTINE Care 03/16/18 10:54 Active PT Evaluation and Treatment [CONS] Routine Cons 03/16/18 10:54 Active Regular Diet [DIET] Diet 03/16/18 Lunch Active Enoxaparin [Lovenox] Med 03/17/18 08:00 Ordered 30 mg SUBCUT DAILY Resuscitation Status Routine Resus Stat 03/16/18 10:54 Ordered Medication Orders Enoxaparin Sodium (Lovenox) 30 mg SUBCUT DAILY [facility] Assessment/Plan Comment:: 88 yo female admitted to swing bed for further pain management and therapy related to low back pain after acute admission for the same. #1 Acute on chronic low back pain - Continue tylenol, flexeril, and gabapentin. - PT to continue working with her. - Plan is for her to have an MRI on Tuesday so injections can be considered. #2 Constipation - Will schedule her stool softeners since she is having recurrent symptoms now. - Will add miralax daily PRN. #3 Adjustment disorder #4 COPD #5 Smoking #6 Glaucoma #7 Hypothyroidism #8 Osteoporosis #9 Mild renal insufficiency - Chronic conditions are stable. - Continue home medications. Patient will remain on swing bed until it is determined she is safe to return to her own home. See details under problems above. Lovenox for VTE prophylaxis until she is moving more consistently. Code status is DNR/DNI.
[2018-03-16] MEDS ORDERED: KETOTIFEN FUMARATE OP PRN (11:23)
[2018-03-16] MEDS ORDERED: Acetaminophen 325 MG Tab PO SCH (11:30)
[2018-03-16] MEDS ORDERED: MOXIFLOXACIN EYELF SCH (12:00)
[2018-03-16] MEDS: Acetaminophen 325 MG Tab PO SCH ×2 (14:17→19:44)
[2018-03-16] MEDS: Cyclobenzaprine 10 MG Tab PO PRN ×2 (18:01→21:01)
[2018-03-16] MEDS: Gabapentin 100 MG Cap PO SCH (19:44)
[2018-03-16] MEDS: Enoxaparin 30 MG/0.3 ML Syringe SUBCUT SCH (19:45)
[2018-03-16] MEDS: LOTEPREDNOL ETABONATE EYELF SCH (19:46)
[2018-03-16] MEDS: BRIMONIDINE EYERT SCH (19:47)
[2018-03-16] MEDS: Erythromycin Base 0.5% Ophth Oint 3.5 GM Tube EYEBOTH SCH (19:47)
[2018-03-16] MEDS: DUREZOL 0.05% EYERT SCH (19:47)
[2018-03-16] MEDS: TIMOLOL EYERT SCH (19:47)
[2018-03-16] MEDS ORDERED: Erythromycin Base 0.5% Ophth Oint 3.5 GM Tube EYELF SCH (20:00)
[2018-03-16] MEDS: LORazepam 0.5 MG Tab PO PRN (21:00)
[2018-03-17] MEDS: Acetaminophen 325 MG Tab PO SCH ×4 (04:40→20:46)
[2018-03-17] MEDS: Levothyroxine 100 MCG Tab PO SCH (06:02)
[2018-03-17] MEDS: Gabapentin 100 MG Cap PO SCH ×2 (07:50→20:45)
[2018-03-17] MEDS: Nicotine 7 MG/24 Hr Patch TRDERM SCH (07:53)
[2018-03-17] MEDS: Gemfibrozil 600 MG Tab PO SCH (07:54)
[2018-03-17] MEDS: valACYclovir 1,000 MG Tab PO SCH (07:54)
[2018-03-17] MEDS: Beta-Carotene (Vitamin A) w/Vitamin C & E plus Minerals Tab PO SCH (07:54)
[2018-03-17] MEDS: Doxepin 25 MG Cap PO SCH (07:54)
[2018-03-17] MEDS: Cyclobenzaprine 10 MG Tab PO PRN ×2 (07:54→20:46)
[2018-03-17] MEDS: Citalopram 10 MG Tab PO SCH (07:55)
[2018-03-17] MEDS: LOTEPREDNOL ETABONATE EYELF SCH ×2 (07:56→20:50)
[2018-03-17] MEDS: BRIMONIDINE EYERT SCH ×2 (07:56→20:50)
[2018-03-17] MEDS: TIMOLOL EYERT SCH ×2 (07:56→20:50)
[2018-03-17] MEDS: DUREZOL 0.05% EYERT SCH ×2 (07:56→20:48)
[2018-03-17] MEDS: Menthol/Methyl Salicylate 85 GM Tube TOP PRN ×2 (07:57→20:56)
[2018-03-17] MEDS: LORazepam 0.5 MG Tab PO PRN (20:46)
[2018-03-17] MEDS: Enoxaparin 30 MG/0.3 ML Syringe SUBCUT SCH (20:47)
[2018-03-17] MEDS: Erythromycin Base 0.5% Ophth Oint 3.5 GM Tube EYEBOTH SCH (20:48)
[2018-03-18] MEDS: Acetaminophen 325 MG Tab PO SCH ×4 (02:52→19:00)
[2018-03-18] MEDS: Levothyroxine 100 MCG Tab PO SCH (07:52)
[2018-03-18] MEDS: Gabapentin 100 MG Cap PO SCH ×2 (08:17→19:01)
[2018-03-18] MEDS: Citalopram 10 MG Tab PO SCH (08:20)
[2018-03-18] MEDS: Doxepin 25 MG Cap PO SCH (08:21)
[2018-03-18] MEDS: Beta-Carotene (Vitamin A) w/Vitamin C & E plus Minerals Tab PO SCH (08:21)
[2018-03-18] MEDS: Nicotine 7 MG/24 Hr Patch TRDERM SCH (08:21)
[2018-03-18] MEDS: Gemfibrozil 600 MG Tab PO SCH (08:21)
[2018-03-18] MEDS: valACYclovir 1,000 MG Tab PO SCH (08:23)
[2018-03-18] MEDS: DUREZOL 0.05% EYERT SCH ×2 (08:40→19:02)
[2018-03-18] MEDS: BRIMONIDINE EYERT SCH ×2 (08:40→18:59)
[2018-03-18] MEDS: TIMOLOL EYERT SCH ×2 (08:40→18:59)
[2018-03-18] MEDS: LOTEPREDNOL ETABONATE EYELF SCH ×2 (08:41→18:59)
[2018-03-18] MEDS: Sennosides 8.6 MG Tab PO SCH (11:40)
[2018-03-18] MEDS: Polyethylene Glycol 3350 Powder 17 GM Packet PO PRN (11:40)
[2018-03-18] MEDS: Cyclobenzaprine 10 MG Tab PO PRN ×2 (11:43→17:16)
[2018-03-18] MEDS: Menthol/Methyl Salicylate 85 GM Tube TOP PRN (11:43)
[2018-03-18] MEDS: Enoxaparin 30 MG/0.3 ML Syringe SUBCUT SCH (18:59)
[2018-03-18] MEDS: Erythromycin Base 0.5% Ophth Oint 3.5 GM Tube EYEBOTH SCH (19:06)
[2018-03-19] MEDS: Acetaminophen 325 MG Tab PO SCH ×4 (01:28→20:43)
[2018-03-19] MEDS: Levothyroxine 100 MCG Tab PO SCH ×2 (05:48→06:57)
[2018-03-19] MEDS: Gabapentin 100 MG Cap PO SCH ×2 (07:59→20:43)
[2018-03-19] MEDS: predniSONE 20 MG Tab PO SCH (08:01)
[2018-03-19] MEDS: Sennosides 8.6 MG Tab PO SCH (08:01)
[2018-03-19] MEDS: Citalopram 10 MG Tab PO SCH (08:01)
[2018-03-19] MEDS: Beta-Carotene (Vitamin A) w/Vitamin C & E plus Minerals Tab PO SCH (08:02)
[2018-03-19] MEDS: Gemfibrozil 600 MG Tab PO SCH (08:02)
[2018-03-19] MEDS: valACYclovir 1,000 MG Tab PO SCH (08:02)
[2018-03-19] MEDS: Menthol/Methyl Salicylate 85 GM Tube TOP PRN ×2 (08:03→21:16)
[2018-03-19] MEDS: Nicotine 7 MG/24 Hr Patch TRDERM SCH (08:04)
[2018-03-19] MEDS: Polyethylene Glycol 3350 Powder 17 GM Packet PO PRN (08:04)
[2018-03-19] MEDS: LOTEPREDNOL ETABONATE EYELF SCH ×2 (08:05→20:47)
[2018-03-19] MEDS: BRIMONIDINE EYERT SCH ×2 (08:05→20:47)
[2018-03-19] MEDS: TIMOLOL EYERT SCH ×2 (08:05→20:47)
[2018-03-19] MEDS: Doxepin 25 MG Cap PO SCH (08:08)
[2018-03-19] MEDS: DUREZOL 0.05% EYERT SCH ×3 (08:11→21:07)
[2018-03-19] MEDS: Cyclobenzaprine 10 MG Tab PO PRN ×2 (13:55→20:45)
[2018-03-19] MEDS: LORazepam 0.5 MG Tab PO PRN (20:45)
[2018-03-19] MEDS: Enoxaparin 30 MG/0.3 ML Syringe SUBCUT SCH (20:46)
[2018-03-19] MEDS: Erythromycin Base 0.5% Ophth Oint 3.5 GM Tube EYEBOTH SCH (20:46)
[2018-03-20] MEDS: Acetaminophen 325 MG Tab PO SCH ×4 (05:04→19:44)
[2018-03-20] MEDS: Levothyroxine 100 MCG Tab PO SCH (06:43)
[2018-03-20] MEDS: Cyclobenzaprine 10 MG Tab PO PRN (06:43)
[2018-03-20] MEDS: Nicotine 7 MG/24 Hr Patch TRDERM SCH (09:03)
[2018-03-20] MEDS: valACYclovir 1,000 MG Tab PO SCH (09:03)
[2018-03-20] MEDS: Citalopram 10 MG Tab PO SCH (09:04)
[2018-03-20] MEDS: Sennosides 8.6 MG Tab PO SCH (09:04)
[2018-03-20] MEDS: Doxepin 25 MG Cap PO SCH ×2 (09:04→09:19)
[2018-03-20] MEDS: Beta-Carotene (Vitamin A) w/Vitamin C & E plus Minerals Tab PO SCH (09:05)
[2018-03-20] MEDS: predniSONE 20 MG Tab PO SCH (09:05)
[2018-03-20] MEDS: Gemfibrozil 600 MG Tab PO SCH (09:05)
[2018-03-20] MEDS: Gabapentin 100 MG Cap PO SCH ×2 (09:05→19:44)
[2018-03-20] MEDS: TIMOLOL EYERT SCH ×2 (09:06→19:43)
[2018-03-20] MEDS: BRIMONIDINE EYERT SCH ×2 (09:06→19:43)
[2018-03-20] MEDS: DUREZOL 0.05% EYERT SCH ×2 (09:06→19:44)
[2018-03-20] MEDS: LOTEPREDNOL ETABONATE EYELF SCH ×2 (09:06→19:42)
[2018-03-20] MEDS: Erythromycin Base 0.5% Ophth Oint 3.5 GM Tube EYEBOTH SCH (19:45)
[2018-03-20] MEDS ORDERED: Doxepin 25 MG Cap PO SCH (20:00)
[2018-03-21] MEDS: Acetaminophen 325 MG Tab PO SCH ×2 (03:12→08:47)
[2018-03-21] MEDS: Levothyroxine 100 MCG Tab PO SCH (06:22)
[2018-03-21] MEDS ORDERED: predniSONE 20 MG Tab PO SCH (08:00)
[2018-03-21] MEDS: valACYclovir 1,000 MG Tab PO SCH (08:41)
[2018-03-21] MEDS: Cyclobenzaprine 10 MG Tab PO PRN (08:41)
[2018-03-21] MEDS: Sennosides 8.6 MG Tab PO SCH (08:43)
[2018-03-21] MEDS: Gemfibrozil 600 MG Tab PO SCH (08:43)
[2018-03-21] MEDS: Citalopram 10 MG Tab PO SCH (08:44)
[2018-03-21] MEDS: Gabapentin 100 MG Cap PO SCH (08:45)
[2018-03-21] MEDS: Nicotine 7 MG/24 Hr Patch TRDERM SCH (08:45)
[2018-03-21] MEDS: DUREZOL 0.05% EYERT SCH (08:46)
[2018-03-21] MEDS: LOTEPREDNOL ETABONATE EYELF SCH (08:46)
[2018-03-21] MEDS: BRIMONIDINE EYERT SCH (08:46)
[2018-03-21] MEDS: TIMOLOL EYERT SCH (08:46)
[2018-03-21] MEDS: Beta-Carotene (Vitamin A) w/Vitamin C & E plus Minerals Tab PO SCH (08:47)
--- NOTE | 2018-03-22 03:41 | DISCH ---
PRIMARY DISCHARGE DIAGNOSES: 1. Back pain secondary to an acute T12 compression fracture. 2. Constipation, resolved. 3. Mild renal insufficiency, resolved. 4. Adjustment disorder with anxiety, started on Celexa, doing well. 5. Chronic obstructive pulmonary disease, chronic, without exacerbation. 6. Chronic smoking, not desiring to quit. 7. Chronic glaucoma and legal blindness. 8. Hypothyroidism. 9. Osteoporosis. 10. Smoking HISTORY OF PRESENT ILLNESS: This is an 88-year-old female who had an injury back in December. She had worked with PT, but had ongoing back pain, had not had a bowel movement for over a week, came into the clinic, was in so much pain she could hardly move. She was found to have a creatinine elevated up to 1.2, and she had low potassium as well. She had some x-rays, which did not reveal a compression fracture. The pain was over the right side, sort of down into the right buttock. She felt like it was like sciatica. She was working with PT. She was getting some the E-stim. Her pain was improving. She also got an enema and started having multiple bowel movements and her bowels were moving good by the time of discharge. She did not at any point require any narcotic pain medications, but did respond well to some Neurontin, muscle relaxants like Flexeril, and even some IV Valium initially, but was able to be weaned off that. She did get initiated on some prednisone due to the concern for disk disease in her back. However, MRI was done on the , which revealed an acute T12 compression fracture. The patient had no pain specifically over the T12 area. We discussed the nature of compression fractures and the fact that it would likely improve and continue to heal on its own. Therefore, we will mainly focus on pain control, and the patient and family were agreeable to this. Her lab work improved to the point her creatinine was down to 0.9. Her potassium was normal at 4. She did have a chest x-ray due to some mild cough, which did show a question of some fullness in the right perihilar area. She had not had a white count or fever or chills. Did discuss with the patient that this will require further workup outpatient, especially given that she is a smoker. DISCHARGE PLANS AND INSTRUCTIONS: The patient will follow up in the clinic with Dr. Grace on 04/06/2018. She will have no lab work due at that time. There were medication changes, which did include Neurontin 200 b.i.d., new medication, and Celexa 5 mg daily. She may continue to alternate Tylenol and Motrin. She otherwise will be under Home Health and have home PT. She will look into assisted living options. PHYSICAL EXAMINATION: Vital Signs: Discharging vitals include a temperature 97.6, pulse 67, blood pressure 135/75, respiratory rate 18, O2 of 98% on room air. Weight is 44.3 kg. General: She is in no acute distress. Heart: Regular rate and rhythm. S1, S2 without murmur. Lungs: Sounds are clear to auscultation bilaterally without crackles or wheezes. Abdomen: Has positive bowel sounds. Soft, nontender. Extremities: Warm and dry. No edema. Mental Status: Alert and orientated x3. Spine: Palpated. There is no pain over the spine. The pain is over the right lumbar musculature. ADDENDUM: To Home Health, which occurred with myself on 03/21/2018. Primary reason for home health is for nursing to do teachings and assessments to help with new medication changes, particularly medications that were changed due to pain and need for ongoing monitoring of that and also with her impaired vision to provide some help with getting things set up in the home as well as physical therapy to help her improve her mobility in the setting of an acute T12 compression fracture. Otherwise, due to the T12 compression fracture, her gait is limited. She can do distances with a walker, but does require the assistance of another individual to leave her home, particularly needing help getting in and out of a vehicle. Therefore, absences from home are infrequent and require taxing effort. I will periodically review this plan of care. MKA: 03/21/2018 11:01:29 MODL: 03/22/2018 03:34:41 /[id number] ALEXANDRA
== END 2018-03-21 14:15 | disposition home health service (06) | DRG 552 ==
LOC: VM.MS 10:56
PROVIDERS: ADMIT Family Medicine; ATTEND Internal Medicine
DX: S22.081A Stable burst fracture of T11-T12 vertebra, initial encounter for closed fracture (principal); M54.16 Radiculopathy, lumbar region; M54.41 Lumbago with sciatica, right side; K59.00 Constipation, unspecified; R05 Cough; E78.5 Hyperlipidemia, unspecified; J44.9 Chronic obstructive pulmonary disease, unspecified; K21.9 Gastro-esophageal reflux disease without esophagitis; Z66 Do not resuscitate; M81.0 Age-related osteoporosis without current pathological fracture; H40.2290 Chronic angle-closure glaucoma, unspecified eye, stage unspecified; H54.8 Legal blindness, as defined in USA; E20.9 Hypoparathyroidism, unspecified; F17.210 Nicotine dependence, cigarettes, uncomplicated; N18.9 Chronic kidney disease, unspecified; F43.22 Adjustment disorder with anxiety; Z94.7 Corneal transplant status; Z79.899 Other long term (current) drug therapy; Z79.52 Long term (current) use of systemic steroids; Z88.2 Allergy status to sulfonamides; Z88.8 Allergy status to other drugs, medicaments and biological substances; Z88.7 Allergy status to serum and vaccine
CPT/HCPCS: 72148; 97110-GO; 97110-GP; 97116-GP; 97530-GP; 97535-GO; A9270-GY; G0283-GP; J1650

== ENCOUNTER 2021-02-10 08:04 | Emergency (ER) | payer MEDICARE, OTHER ==
--- NOTE | 2021-02-10 08:29 | CR ---
[id number] RAD/RAD Wrist Left 3V Min EXAM: RAD Wrist Left 3V Min INDICATION: INJURY/PAIN. COMPARISON: None. DISCUSSION: Osteopenia. There is an acute impacted distal radius fracture with mild dorsal angulation of the main distal fracture segment. Mild radiocarpal, triscaphe and first carpometacarpal osteoarthritis. No dislocation. IMPRESSION: 1. Acute mildly impacted and angulated distal radial metaphysis fracture. Patric Bill MD 02/10/21 0828 Thank you for allowing us to participate in the care of your patient.
--- NOTE | 2021-02-10 08:39 | EDM.PDOC ---
ED HPI GENERAL MEDICAL PROBLEM - General Stated Complaint: POSSIBLE BROKEN ARM Time Seen by Provider: 02/10/21 08:04 Source of Information: Reports: Patient History Limitations: Reports: No Limitations - History of Present Illness INITIAL COMMENTS - FREE TEXT/NARRATIVE: Pt. presents to ER with complaints of L wrist pain. Pt. states that she misstepped and fell, falling on an outstretched L hand. She denies striking her head. She is able to move her fingers. She states that the discomfort is fairly well controlled when she isn't moving her wrist. Denies any numbness/tingling. Denies any injury elsewhere. Onset: Today Onset Date: 02/10/21 Location: Reports: Upper Extremity, Left - Related Data Allergies Allergy/AdvReac Type Severity Reaction Status Date / Time Sulfa (Sulfonamide Allergy Rash Verified 07/10/18 14:16 Antibiotics) tetanus and diphtheria Allergy Rash Verified 07/10/18 14:16 toxoids atorvastatin [From Lipitor] AdvReac Muscle Verified 07/10/18 14:16 Weakness paroxetine [From Paxil] AdvReac Diarrhea Verified 07/10/18 14:16 simvastatin [From Zocor] AdvReac Muscle Verified 07/10/18 14:16 Weakness wasp Allergy Difficulty Uncoded 07/10/18 14:16 Swallowing Home Meds: Home Meds Brimonidine/Timolol [Combigan 0.2%/0.5% Ophth Soln] 1 drop EYERT BID 01/19/17 [History] Doxepin [SINEquan] 25 mg PO BEDTIME 01/19/17 [History] EPINEPHrine [Epipen] 0.3 mg IM ASDIRECTED PRN 01/19/17 [History] Erythromycin Base [Erythromycin] 1 applic EYEBOTH BEDTIME 01/19/17 [History] Ketotifen Fumarate [Alaway] 1 drop OP Q2D PRN 01/19/17 [History] LORazepam 0.5 mg PO BID PRN 01/19/17 [History] Levothyroxine [Synthroid] 100 mcg PO ACBREAKFAST 01/19/17 [History] Loteprednol Etabonate [Lotemax] 1 drop EYELF BID 01/19/17 [History] Multivitamin Plus 1 tab PO DAILY 01/19/17 [History] Vit C/Vit E/Lutein/Minerals 1 [Prosight with Lutein] 1 tab PO DAILY 01/19/17 [History] Menthol/Methyl Salicylate [Icy Hot] 1 applicful TP BID PRN 03/16/18 [History] Citalopram Hydrobromide [Celexa] 5 mg PO DAILY #30 tablet 03/21/18 [Rx] Sennosides [Senna] 8.6 mg PO DAILY #30 tablet 03/21/18 [Rx] polyethylene glycoL 3350 [MiraLAX] 17 gm PO DAILY PRN #30 packet 03/21/18 [Rx] Acetaminophen 500 mg PO QID 07/04/18 [History] Gabapentin [Neurontin] 300 mg PO BID 07/04/18 [History] Past Medical History HEENT History: Reports: Glaucoma Other HEENT History: bilateral dry eye, interocular lens replacement, 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, left glaucoma shunt device, dermatochalasis,corneal edemaright,branch retinal vein occlusion, pseudophakia Cardiovascular History: Reports: High Cholesterol Other Cardiovascular History: hyperlipidemia, elevated blood pressure Respiratory History: Reports: COPD Gastrointestinal History: Reports: GERD Other Gastrointestinal History: Mina's Genitourinary History: Reports: Chronic Renal Insuffiency Musculoskeletal History: Reports: Back Pain, Chronic, Osteoporosis Neurological History: Reports: None Psychiatric History: Reports: Anxiety Other Psychiatric History: adjustment disorder Endocrine/Metabolic History: Reports: Hypoparathyroidism Other Endocrine/Metabolic History: impaired fasting glucose, Hematologic History: Reports: None Oncologic (Cancer) History: Reports: Colon, Other (See Below) Other Oncologic History: tubular adenoma Dermatologic History: Reports: Other (See Below) Other Dermatologic History: rash - Past Surgical History HEENT Surgical History: Reports: Other (See Below) Other HEENT Surgeries/Procedures: post corneal transplant Social & Family History - Family History Family Medical History: No Pertinent Family History Cardiac: Reports: CAD Other Cardiac Family History: father had CAD Musculoskeletal: Reports: Back pain, Chronic Other Musculoskeletal Family History: sisters have back pain Neurological: Reports: CVA, Seizure Other Neurological Family History: father had CVA Endocrine/Metabolic: Reports: Diabetes, type II Other Endocrine/Metabolic Family History: father had diabetes Oncologic: Reports: Breast, Colon Other Oncologic Family History: sister of rectal cancer. 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 ED EXAM, GENERAL - Physical Exam Exam: See Below Exam Limited By: No Limitations General Appearance: Alert, WD/WN, No Apparent Distress Extremities: Other (pain on palpation/minimal deformity to L wrist. CMS intact. No crepitus.) ED GENERAL MEDICAL PROCEDURES - Splinting Left Splint Site: wrist Pre-procedure NV status: Normal Post-procedure NV status: Normal Splint Type: Custom Splint Material: Fiberglass Splint Design: Posterior Applied & Form Fitted By: Provider, Nurse Provider Post-Splint Application NV Check: NV Status Normal, Good Position Complications: No Course - Radiology Interpretation Free Text/Narrative:: Acute mildly impacted and angulated distal radial metaphysis fracture. Departure - Departure Time of Disposition: 08:58 Disposition: DC/Tfer to [facility] Clinical Impression: Wrist fracture, left - Discharge Information Instructions: Radial Fracture Referrals: Angelic Grace DO [Primary Care Provider] - Additional Instructions: Home to rest. Wear splint at all times. Tylenol as needed for pain. For severe pain, lortab 5/325mg 1/2 to 1 tab every 4-[address] Atwood will be putting in a referral to get a cast put on your arm - Problem List Review Problem List Initiated/Reviewed/Updated: Yes - Assessment/Plan Plan: Home to rest. Wear splint at all times. Tylenol as needed for pain. For severe pain, lortab 5/325mg 1/2 to 1 tab every 4-[address] Atwood will be putting in a referral to get a cast put on your arm
== END 2021-02-10 08:50 | disposition home or self-care (01) ==
LOC: VM.ED 08:04
DX: S52.502A Unspecified fracture of the lower end of left radius, initial encounter for closed fracture (principal); J44.9 Chronic obstructive pulmonary disease, unspecified; E20.9 Hypoparathyroidism, unspecified; N18.9 Chronic kidney disease, unspecified; Z88.2 Allergy status to sulfonamides; Z88.7 Allergy status to serum and vaccine; Z88.8 Allergy status to other drugs, medicaments and biological substances; Z91.030 Bee allergy status; Z79.899 Other long term (current) drug therapy; W10.9XXA Fall (on) (from) unspecified stairs and steps, initial encounter
CPT/HCPCS: 29125; 73110-LT; 99283; 99283-25

== ENCOUNTER 2021-03-18 22:20 | Inpatient (IN) | payer MEDICARE, OTHER ==
[2021-03-18] MEDS ORDERED: Acetaminophen/HYDROcodone 325-5 MG Tab PO ONE (23:26)
[2021-03-18 23:53] LABS: CHLORIDE,CL 100 mmol/L (98-107); SODIUM,NA 139 mmol/L (136-145)
[2021-03-18 23:54] LABS: ANION GAP 13.3 mmol/L (5-15); PTT,PARTIAL THROMBOPLSTIN TIME 25.2 SEC (25.6-32.8)
[2021-03-19] MEDS ORDERED: Acetaminophen 325 MG Tab PO PRN (00:07)
[2021-03-19] MEDS ORDERED: Acetaminophen/HYDROcodone 325-10 MG Tab PO PRN (00:10)
[2021-03-19] MEDS ORDERED: tiZANidine 4 MG Tab PO PRN (00:10)
[2021-03-19 00:13] LABS: CORONAVIRUS COVID-19 NAA NEGATIVE (NEGATIVE)
[2021-03-19] MEDS: HYDROmorphone 0.5 MG/0.5 ML Syringe IVPUSH PRN ×5 (00:35→13:47)
[2021-03-19] MEDS: Heparin Sodium 5,000 Units/ML Vial SUBCUT SCH ×2 (00:35→08:42)
[2021-03-19] MEDS ORDERED: Sennosides 8.6 MG Tab PO PRN (06:26)
[2021-03-19] MEDS ORDERED: Bisacodyl 5 MG Tab PO PRN (06:26)
[2021-03-19] MEDS ORDERED: Bisacodyl 10 MG Supp RECTAL PRN (06:26)
[2021-03-19] MEDS ORDERED: Levothyroxine 100 MCG Tab PO SCH (06:30)
[2021-03-19] MEDS ORDERED: oxyCODONE 5 MG Tab PO PRN (06:32)
[2021-03-19 07:00] LABS: PCO2 ARTERIAL,POC 71 mmHg (35-48)
[2021-03-19] MEDS ORDERED: Lactated Ringers 1,000 ML IV SCH ×2 (07:15→07:20)
[2021-03-19] MEDS ORDERED: Citalopram 10 MG Tab PO SCH (08:00)
[2021-03-19] MEDS ORDERED: Cholecalciferol (Vitamin D3) 25 MCG Tab PO SCH (08:00)
[2021-03-19] MEDS ORDERED: Timolol Maleate 0.5% Ophth Soln 5 ML Bottle EYERT SCH (08:00)
[2021-03-19] MEDS ORDERED: Brimonidine 0.2% Ophth Soln 5 ML Bottle EYERT SCH (08:00)
[2021-03-19] MEDS ORDERED: Beta-Carotene (Vitamin A) w/Vitamin C & E plus Minerals Tab PO SCH (08:00)
[2021-03-19] MEDS ORDERED: Loratadine 10 MG Tab PO SCH (08:00)
[2021-03-19] MEDS ORDERED: Polyethylene Glycol 3350 Powder 17 GM Packet PO SCH ×2 (08:00)
[2021-03-19] MEDS: Ondansetron 4 MG/2 ML SDV IV PRN ×2 (08:42→13:47)
[2021-03-19] MEDS: Ketotifen 0.025% Ophth Soln 5 ML Bottle EYEBOTH SCH (08:43)
[2021-03-19] MEDS: Gabapentin 100 MG Cap PO SCH ×3 (08:43→19:59)
[2021-03-19] MEDS: Acetaminophen 325 MG Tab PO SCH ×3 (08:52→18:55)
[2021-03-19] MEDS ORDERED: HYDROmorphone 0.5 MG/0.5 ML Syringe IVPUSH PRN (09:20)
[2021-03-19] MEDS ORDERED: Naloxone 0.4 MG/ML SDV IVPUSH ONE (10:25)
[2021-03-19] MEDS: LOTEPREDNOL ETABONATE EYEBOTH SCH (11:47)
[2021-03-19] MEDS: COMBIGAN EYERT SCH ×2 (11:47→20:03)
[2021-03-19] MEDS: DIFLUPREDNATE EYERT SCH (11:47)
[2021-03-19] MEDS ORDERED: Flumazenil 0.1 MG/ML 5 ML MDV IVPUSH PRN (12:54)
[2021-03-19] MEDS ORDERED: Ketorolac 15 MG/ML SDV IVPUSH SCH (13:00)
[2021-03-19] MEDS: HYDROmorphone 1 MG/ML Syringe IVPUSH PRN (18:35)
[2021-03-19] MEDS ORDERED: Sodium Chloride 0.9% 10 ML Syringe FLUSH PRN (18:50)
[2021-03-19] MEDS: Ketorolac 15 MG/ML SDV IVPUSH SCH (19:59)
[2021-03-19] MEDS ORDERED: Doxepin 25 MG Cap PO SCH (20:00)
[2021-03-19] MEDS: [UNRECOGNIZED DRUG - OTHER] EYEBOTH SCH (20:03)
[2021-03-19] MEDS: SODIUM CHLORIDE 5% EYEBOTH SCH (20:03)
[2021-03-20] MEDS: Acetaminophen 325 MG Tab PO SCH ×4 (00:46→20:03)
[2021-03-20] MEDS: HYDROmorphone 0.5 MG/0.5 ML Syringe IVPUSH PRN ×3 (00:47→11:14)
[2021-03-20] MEDS: Ketorolac 15 MG/ML SDV IVPUSH SCH ×5 (01:52→19:59)
[2021-03-20] MEDS: Gabapentin 100 MG Cap PO SCH ×3 (06:22→20:03)
[2021-03-20] MEDS: DIFLUPREDNATE EYERT SCH (09:18)
[2021-03-20] MEDS: COMBIGAN EYERT SCH ×2 (09:18→20:06)
[2021-03-20] MEDS: LOTEPREDNOL ETABONATE EYEBOTH SCH (09:18)
[2021-03-20] MEDS: HYDROmorphone 1 MG/ML Syringe IVPUSH PRN (15:34)
[2021-03-20] MEDS: Glycopyrrolate 0.2 MG/ML 2 ML SDV IVPUSH PRN (16:14)
[2021-03-20] MEDS: HYDROmorphone 0.5 MG/0.5 ML Syringe IVPUSH SCH (20:02)
[2021-03-20] MEDS: [UNRECOGNIZED DRUG - OTHER] EYEBOTH SCH (20:05)
[2021-03-20] MEDS: SODIUM CHLORIDE 5% EYEBOTH SCH (20:05)
[2021-03-21] MEDS: HYDROmorphone 1 MG/ML Syringe IVPUSH PRN (01:50)
[2021-03-21] MEDS: Acetaminophen 325 MG Tab PO SCH ×2 (01:52→06:06)
[2021-03-21] MEDS ORDERED: Ketorolac 15 MG/ML SDV IVPUSH PRN (06:00)
[2021-03-21] MEDS: Gabapentin 100 MG Cap PO SCH (06:06)
[2021-03-21] MEDS: HYDROmorphone 0.5 MG/0.5 ML Syringe IVPUSH PRN ×2 (06:38→15:55)
[2021-03-21] MEDS: Ketotifen 0.025% Ophth Soln 5 ML Bottle EYEBOTH SCH (06:42)
[2021-03-21] MEDS: COMBIGAN EYERT SCH (07:24)
[2021-03-21] MEDS: LOTEPREDNOL ETABONATE EYEBOTH SCH (07:25)
[2021-03-21] MEDS: DIFLUPREDNATE EYERT SCH (07:25)
[2021-03-21] MEDS: Ondansetron 4 MG/2 ML SDV IV PRN (07:28)
[2021-03-21] MEDS: Glycopyrrolate 0.2 MG/ML 2 ML SDV IVPUSH PRN ×2 (07:28→15:55)
[2021-03-21] MEDS: HYDROmorphone 0.5 MG/0.5 ML Syringe IVPUSH SCH (09:01)
== END 2021-03-21 18:15 | disposition expired | DRG 535 ==
LOC: VM.ED 22:20 → VM.MS 23:52
PROVIDERS: ADMIT Internal Medicine; ATTEND Internal Medicine
DX: S72.144A Nondisplaced intertrochanteric fracture of right femur, initial encounter for closed fracture (principal); S09.8XXA Other specified injuries of head, initial encounter; J96.92 Respiratory failure, unspecified with hypercapnia; S32.000A Wedge compression fracture of unspecified lumbar vertebra, initial encounter for closed fracture; H34.8192 Central retinal vein occlusion, unspecified eye, stable; E46 Unspecified protein-calorie malnutrition; H34.9 Unspecified retinal vascular occlusion; S62.102A Fracture of unspecified carpal bone, left wrist, initial encounter for closed fracture; N18.9 Chronic kidney disease, unspecified; M81.0 Age-related osteoporosis without current pathological fracture; Z51.5 Encounter for palliative care; J44.9 Chronic obstructive pulmonary disease, unspecified; F41.9 Anxiety disorder, unspecified; E03.9 Hypothyroidism, unspecified; E78.5 Hyperlipidemia, unspecified; Z20.822 Contact with and (suspected) exposure to COVID-19; F41.1 Generalized anxiety disorder; H40.20X0 Unspecified primary angle-closure glaucoma, stage unspecified; N18.32 Chronic kidney disease, stage 3b; Z66 Do not resuscitate; H54.8 Legal blindness, as defined in USA; K22.70 Barrett's esophagus without dysplasia; T40.605A Adverse effect of unspecified narcotics, initial encounter; H40.2290 Chronic angle-closure glaucoma, unspecified eye, stage unspecified; H04.123 Dry eye syndrome of bilateral lacrimal glands; Z96.1 Presence of intraocular lens; H02.839 Dermatochalasis of unspecified eye, unspecified eyelid; W18.39XA Other fall on same level, initial encounter; E78.00 Pure hypercholesterolemia, unspecified; M54.9 Dorsalgia, unspecified; F43.22 Adjustment disorder with anxiety; G89.29 Other chronic pain; K21.9 Gastro-esophageal reflux disease without esophagitis; I12.9 Hypertensive chronic kidney disease with stage 1 through stage 4 chronic kidney disease, or unspecified chronic kidney disease; N81.0 Urethrocele; E20.9 Hypoparathyroidism, unspecified; R73.01 Impaired fasting glucose; Z94.7 Corneal transplant status; Z68.21 Body mass index [BMI] 21.0-21.9, adult; Z79.890 Hormone replacement therapy; Z79.899 Other long term (current) drug therapy; Z88.2 Allergy status to sulfonamides; Z88.7 Allergy status to serum and vaccine; Z88.8 Allergy status to other drugs, medicaments and biological substances; Z82.3 Family history of stroke; Z82.49 Family history of ischemic heart disease and other diseases of the circulatory system; Z83.3 Family history of diabetes mellitus; Z91.030 Bee allergy status; Z85.038 Personal history of other malignant neoplasm of large intestine; Z80.0 Family history of malignant neoplasm of digestive organs
CPT/HCPCS: 0240U; 36415; 36600; 51702; 70450; 72125; 80053; 82803; 85025; 85610; 85730; 93005; 94660; 94760; 96374; 96375; 99285-25; A9270-GY; J1170; J1644; J1885; J2310; J2405; J3360; J3490; J7120